=== PATIENT | male | born 1995 | race Caucasian/White ===

== ENCOUNTER 2021-11-18 13:32 | Emergency (ER) | payer OTHER ==
[~2021-11-18] VITALS: Ht 170.2 cm; Wt 90.9 kg
[2021-11-18] MEDS ORDERED: CEPHALEXIN500 M1 PO (14:35)
[2021-11-18 15:11] VITALS: BP 112/71
== END 2021-11-18 15:12 | disposition home or self-care (01) ==
LOC: ED 13:32
DX: S91.312A Laceration without foreign body, left foot, initial encounter (principal); Z23 Encounter for immunization; Z28.310 Unvaccinated for COVID-19; W25.XXXA Contact with sharp glass, initial encounter; Y92.63 Factory as the place of occurrence of the external cause; Y99.0 Civilian activity done for income or pay
CPT/HCPCS: 90715